=== PATIENT | female | born 1975 | race Caucasian/White ===

== ENCOUNTER 2019-02-20 16:48 | Outpatient (REF) | payer BC, SELFPAY ==
[2019-02-23 13:45] LABS: Chlamydia Result Negative; GC Result Negative
== END 2019-02-20 17:08 ==
LOC: LBN 16:48
PROVIDERS: PCP Physician Assistant Medical; Visit Provider Nurse Practitioner Family
DX: Z11.3 Encounter for screening for infections with a predominantly sexual mode of transmission (principal)
CPT/HCPCS: 87491; 87591

== ENCOUNTER 2019-04-21 01:14 | Outpatient (CLI) | payer BC, SELFPAY ==
--- NOTE | 2019-04-21 08:32 | DI.MAMMO_ITS ---
EXAM: MG MAMMO SCREENING CLINICAL HISTORY: screening, Z12.31 TECHNIQUE: Mammograms were interpreted according to the usual protocol including computer analysis w [employer] CAD system, tomosynthesis and C-view imaging. COMPARISON: [id number] FINDINGS: The breasts are composed of heterogeneously dense tissue, which may obscure small masses, breast dens ity category C. There are no suspicious masses or suspicious microcalcifications. There has been no significant chagne when compared with prior images. IMPRESSION: Category 1, negative mammogram. Routine yearly screening is recommended. BI-RADS Cat 1 - Negative Breast Density - Category C - Heterogeneously dense
== END 2019-04-21 01:34 ==
PROVIDERS: PCP Physician Assistant Medical; Visit Provider Nurse Practitioner Family
DX: Z12.31 Encounter for screening mammogram for malignant neoplasm of breast (principal)
CPT/HCPCS: 77063; 77067

== ENCOUNTER 2019-08-25 12:34 | Outpatient (CLI) | payer OTHER, SELFPAY ==
[2019-08-25 13:11] LABS: Kit/Specimen SENT
== END 2019-08-25 12:54 ==
PROVIDERS: PCP Physician Assistant Medical; Visit Provider Naturopath
DX: R51 Headache (principal); Z00.00 Encounter for general adult medical examination without abnormal findings; R53.82 Chronic fatigue, unspecified; L20.9 Atopic dermatitis, unspecified; L29.9 Pruritus, unspecified
CPT/HCPCS: 36415

== ENCOUNTER 2020-02-26 15:34 | Outpatient (REF) | payer OTHER, SELFPAY ==
[2020-02-26 16:01] LABS: Abs Immature Grans 0.02 10^3/uL (0.0-0.06); Absolute Basophil Count 0.04 10^3/uL (0.0-0.2); Absolute Eosinophil Count 0.56 10^3/uL (0.0-0.7); Absolute Lymphocyte Count 2.09 10^3/uL (1.2-3.4); Absolute Monocyte Count 0.45 10^3/uL (0.1-0.8); Absolute Neutrophil Count 3.77 10^3/uL (1.2-6.7); Basophils % 0.6; Eosinophils % 8.1; HCT 42.7 % (36.0-46.0); HGB 13.7 g/dL (11.2-15.7); Immature Grans % 0.3; Lymphocytes % 30.2; MCH 28.8 pg (27.0-33.0); MCHC 32.1 % (32.0-36.0); MCV 89.7 fL (80-95); MPV 9.3 fL (8.0-11.0); Monocytes % 6.5; Neutrophils % 54.3; Nucleated RBC 0 %; Platelet Count 368 10^3/uL (130-400); RBC 4.76 10^6/uL (3.93-5.22); RDW 13.6 % (11.7-14.6); RDW-SD 44.8 fL; WBC 6.93 10^3/uL (4.4-10.8)
[2020-02-26 16:55] LABS: ALT 28 U/L (14-59); AST 17 U/L (15-37); Albumin 4.2 g/dL (3.4-5.0); Alkaline Phosphatase 76 U/L (46-116); Anion Gap 4.1 mmol/L (3-11); BUN 15 mg/dL (7-18); Bilirubin, Total 0.5 mg/dL (0.2-1.0); CO2 28.9 mmol/L (21.0-32.0); CREATININE 0.98 mg/dL (0.55-1.02); Calcium 8.8 mg/dL (8.5-10.1); Calculated LDL 163 mg/dL (<100); Chloride 103 mmol/L (98-107); Cholesterol 230 mg/dL (<200); Glucose 88 mg/dL (74-106); HDL Cholesterol 51 mg/dL (40-60); Magnesium 1.9 mg/dL (1.8-2.4); Potassium 4.3 mmol/L (3.5-5.1); Sodium 136 mmol/L (136-145); TSH (W/Ref FT4) 4.06 uIU/mL (0.36-3.74); Total Protein 7.5 g/dL (6.4-8.2); Triglyceride 84 mg/dL (<150)
[2020-02-26 16:57] LABS: Troponin I < 0.05 ng/mL (<0.06)
[2020-02-26 17:20] LABS: FREE T4 0.93 ng/dL (0.76-1.46)
== END 2020-02-26 15:54 ==
LOC: NCHCN 15:34
PROVIDERS: PCP Physician Assistant Medical; Visit Provider Nurse Practitioner Family
DX: R07.9 Chest pain, unspecified (principal)
CPT/HCPCS: 80053; 80061; 83735; 84439; 84443; 84484; 85025

== ENCOUNTER 2020-04-20 09:55 | Outpatient (REF) | payer OTHER, SELFPAY ==
[2020-04-20 21:18] LABS: TSH (W/Ref FT4) 3.17 uIU/mL (0.36-3.74)
== END 2020-04-20 10:15 ==
LOC: NCHCN 09:55
PROVIDERS: PCP Physician Assistant Medical; Visit Provider Physician Assistant Medical
DX: Z00.00 Encounter for general adult medical examination without abnormal findings (principal)
CPT/HCPCS: 84443

== ENCOUNTER 2020-07-05 03:20 | Outpatient (CLI) | payer OTHER, SELFPAY ==
[2020-07-05 13:30] LABS: Abs Immature Grans 0.01 10^3/uL (0.0-0.06); Absolute Basophil Count 0.03 10^3/uL (0.0-0.2); Absolute Eosinophil Count 0.45 10^3/uL (0.0-0.7); Absolute Lymphocyte Count 2.08 10^3/uL (1.2-3.4); Absolute Monocyte Count 0.28 10^3/uL (0.1-0.8); Absolute Neutrophil Count 3.32 10^3/uL (1.2-6.7); Basophils % 0.5; Eosinophils % 7.3; HCT 42.6 % (36.0-46.0); HGB 13.9 g/dL (11.2-15.7); Immature Grans % 0.2; Lymphocytes % 33.7; MCHC 32.6 % (32.0-36.0); MCV 88.9 fL (80-95); MPV 9.2 fL (8.0-11.0); Monocytes % 4.5; Neutrophils % 53.8; Nucleated RBC 0 %; Platelet Count 292 10^3/uL (130-400); RBC 4.79 10^6/uL (3.93-5.22); RDW 12.9 % (11.7-14.6); RDW-SD 42.4 fL; WBC 6.17 10^3/uL (4.4-10.8)
[2020-07-05 14:07] LABS: Iron 94 ug/dL (50-170); Total Iron Binding Capacity 300 ug/dL (250-450); Transferrin Sat 31 % (15-50)
[2020-07-05 15:05] LABS: ALT 34 U/L (14-59); AST 18 U/L (15-37); Albumin 4.3 g/dL (3.4-5.0); Alkaline Phosphatase 60 U/L (46-116); Anion Gap 7.3 mmol/L (3-11); BUN 12 mg/dL (7-18); Bilirubin, Total 0.4 mg/dL (0.2-1.0); CO2 28.7 mmol/L (21.0-32.0); CREATININE 0.67 mg/dL (0.55-1.02); Calcium 8.5 mg/dL (8.5-10.1); Chloride 103 mmol/L (98-107); Glucose 90 mg/dL (74-106); Potassium 3.9 mmol/L (3.5-5.1); Sodium 139 mmol/L (136-145); TSH 4.37 uIU/mL (0.36-3.74); Total Protein 7.3 g/dL (6.4-8.2); Vitamin B12 1393 pg/mL (193-986)
[2020-07-05 15:09] LABS: Folate > 20.0 ng/mL (8.6-20.0)
[2020-07-05 15:34] LABS: FREE T4 0.97 ng/dL (0.76-1.46)
[2020-07-05 21:48] LABS: T3,Free 3.4 pg/mL (2.8-5.3)
[2020-07-05 22:03] LABS: T3, Total 151 ng/dL (97-169)
[2020-07-07 12:05] LABS: Free Retinol (Vitamin A) 58.4 mcg/dL (32.5-78.0)
[2020-07-12 15:10] LABS: 25-Hydroxy D Total 81 ng/mL; 25-Hydroxy D2 <4.0 ng/mL; 25-Hydroxy D3 81 ng/mL
== END 2020-07-05 03:40 ==
PROVIDERS: PCP Physician Assistant Medical; Visit Provider Naturopath
DX: E55.9 Vitamin D deficiency, unspecified (principal); R53.83 Other fatigue; E61.1 Iron deficiency; R20.2 Paresthesia of skin
CPT/HCPCS: 36415; 80053; 82306; 82607; 82746; 83540; 83550; 84439; 84443; 84480; 84481; 84590; 85025

== ENCOUNTER 2020-09-21 01:49 | Outpatient (CLI) | payer OTHER, SELFPAY ==
--- NOTE | 2020-09-21 12:57 | DI.US_ITS ---
APPROVED REPORT EXAM: Comprehensive 2D, Doppler, and color-flow Echocardiogram Patient Location: Out-Patient [facility] Supervisor: Annabella Hilliard RDCS (AE) Indications: Chest pain Other Information Study Quality: Adequate Conclusion Left Ventricle : The left ventricle is normal size. The left ventricular systolic function is normal. The left ventricular ejection fraction is within the normal range. There is normal left ventricular wall thickness. There is normal LV segmental wall motion. LVEF is 60%. Right Ventricle : The right ventricle is normal size. The right ventricular systolic function is norm al. The RVSP is 20.4mmHg. Atria : The left atrium size is normal. The right atrium size is normal. Mitral Valve : The mitral valve is normal in structure. Mild mitral regurgitation. No evidence of sam ral valve stenosis. Great Vessels : The aortic root is normal in size. The ascending aorta is normal in size. Aortic ar ch is not well visualized. IVC is normal in size and collapses >50% with inspiration. Please see remainder of study for further details. Wall motion Left Ventricle The left ventricle is normal size. The left ventricular systolic function is normal. The left ventric ular ejection fraction is within the normal range. There is normal left ventricular wall thickness. T here is normal LV segmental wall motion. There is no ventricular septal defect visualized. LVEF is 60 %. Right Ventricle The right ventricle is normal size. The right ventricular systolic function is normal. The RVSP is 20 .4mmHg. Atria The left atrium size is normal. The right atrium size is normal. The interatrial septum is intact wit h no evidence for an atrial septal defect. Aortic Valve The aortic valve is normal in structure. Aortic valve is trileaflet. There is no aortic valvular sten osis. No aortic regurgitation is present. Mitral Valve The mitral valve is normal in structure. No evidence of mitral valve stenosis. Mild mitral regurgitat ion. Tricuspid Valve The tricuspid valve is normal in structure. There is no tricuspid valve stenosis. Trace tricuspid reg urgitation. Pulmonic Valve The pulmonary valve is normal in structure. There is no pulmonic valvular stenosis. There is no pulmo edilia valvular regurgitation. Great Vessels The aortic root is normal in size. The ascending aorta is normal in size. Aortic arch is not well vi sualized. IVC is normal in size and collapses >50% with inspiration. Pericardium There is no pericardial effusion. 2D Dimensions IVSD d PLAX 0.77 cm F: 0.6-1.0 LV Vol A2C d MOD 106.2 mL LVPW d PLAX 0.78 cm F: 0.6 - 1.0 LV Vol A4C d MOD 114.3 mL LVID d PLAX 5.03 cm F: 3.8 - 5.2 LA vol/ BSA A2C s A-L 27.2 mL/m2 LVDs 3.25 cm F: 2.2 - 3.5 LA vol/ BSA A4C s A-L 25.4 mL/m2 Ao Root d 2.59 cm F: 2.7 - 3.3 LA Vol/ BSA Biplane s A-L 27.0 mL/m2 RA Area A4C 12.78 cm2 LA Area A4C s MOD 15.85 cm2 RA Vol/ BSA A4C s A-L 19.3 mL/m2 LA Area A2C s MOD 16.00 cm2 Ao Asc Diam d 3.16 cm F: 2.3 - 3.1 LV EF A4C MOD 61.8 % LV EF Teichholz 63.6 % LV EF A2C MOD 60.4 % LVEF (Davila's) 61.16 % F: 54 - 74 LV EF Biplane MOD 61.2 % LV Volume 89.08 mL F: 46 - 106 SV 68.03 mL LV Volume Index 53.66 mL/m2 F: 29 - 61 SV Index 40.94 mL/m2 LV Vol Biplane MOD 111.2 mL FS 34.65 % M-Mode TAPSE 2.58 cm (M/F) >1.7 LV Diastology E/A Ratio 1.3 MV E Vmax 0.82 (0.4-1.3 m/s) MV A Vmax 0.65 (0.4-1.3 m/s) MV E/A Ratio 1.24 Aortic Valve LVOT Area 3.44 cm2 AoV Area Vmax 2.96 cm2 LVOT Vmax 1.23 m/s AoV Area/ BSA (Vmax) 1.78 cm2/m2 LVOT Mean Diaz. 0.88 m/s LAMONT Mean Diaz. 3.19 cm2 LVOT Peak Grad 6.0 mmHg LAMONT Mean Diaz. Index 1.92 cm2/m2 LVOT Mean Grad 3.4 mmHg LVOT VTI 0.266 m LVOT Diam s 2.05 cm AoV Vmax 1.43 m/s Velocity Ratio 0.86 AoV Mean Diaz. 0.95 m/s AoV Peak Grad 8.1 mmHg LVOT SV 91.62 mL AoV Mean Grad 4.2 mmHg AoV VTI 0.334 m AoV Area VTI 2.74 cm2 AoV Area/ BSA (VTI) 1.65 cm/m2 Mitral Valve MV DT 269 (160-240 msec) MV PHT 78 msec MV Area PHT 2.82 cm2 Pulmonary Valve PV Vmax 0.99 (0.5-1.5 m/s) RVOT Peak Gr. 2.14 mmHg PV Peak Grad 3.9 mmHg RVOT Mean Gr. 1.00 mmHg PV Mean Grad 1.8 mmHg RVOT VTI 0.188 m PV VTI 0.236 m RVOT Vmax 0.73 m/s Tricuspid Valve TR Peak Grad 17.3 mmHg TR Vmax 2.08 m/s RA Pressure 3.00 mmHg RVSP (TR) 20.4 mmHg
== END 2020-09-21 02:09 ==
PROVIDERS: PCP Physician Assistant Medical; Visit Provider Naturopath
DX: R07.9 Chest pain, unspecified (principal); I34.0 Nonrheumatic mitral (valve) insufficiency
CPT/HCPCS: 93306

== ENCOUNTER 2021-01-19 11:48 | Outpatient (REF) | payer OTHER, SELFPAY ==
--- NOTE | 2021-01-19 10:30 | PAPFT_PTH ---
PATIENT: Lindsey Carrasquillo LOC: [facility] U#:[id number] AGE/SX: 45/F ROOM: RE01/19/[address]: HAZEL Gamble : 1975 BED: DIS: 01/19/2021 SPEC #: [id number] RECD: 01/19/21 12:55 STATUS: SANTIAGO REQ #: [id number] GARY: 01/19/21 10:[address]: Feli Ye DEPT: [facility] Cytology RECD BY: Tiana Pappas ENTERED: 01/19/21 12:55 SP TYPE: PAPFT OTHR DR: Catrina Huber Tissues: 1 - CX/ENDOCX FOR PAP SMEARS Procedures: PAP THIN PREP/UVM Screening HPV DNA PROBE Comments: [id number]
== END 2021-01-19 11:49 | disposition home or self-care (01) ==
LOC: LBN 11:48
PROVIDERS: PCP Physician Assistant Medical; Visit Provider Nurse Practitioner Family
DX: Z12.4 Encounter for screening for malignant neoplasm of cervix (principal); Z11.51 Encounter for screening for human papillomavirus (HPV); Z01.419 Encounter for gynecological examination (general) (routine) without abnormal findings
CPT/HCPCS: 88142; 87624

== ENCOUNTER 2021-03-15 01:46 | Outpatient (CLI) | payer OTHER, SELFPAY ==
--- NOTE | 2021-03-15 07:00 | DI.MAMMO_ITS ---
Exam(s) MAMMO SCREENING EXAM: MAMMO SCREENING CLINICAL HISTORY: screening, Z12.39 TECHNIQUE: Bilateral full field digital CC and MLO mammographic images were obtained with 3D tomosyn thesis and utilizing computer aided detection (CAD). COMPARISON: Available for comparison. FINDINGS: Masses/Architectural Distortion: None seen. Microcalcifications: No suspicious pleomorphic-type are seen. Skin Thickening/Nipple Retraction: None. IMPRESSION: 1. No significant interval change with no specific features of malignancy noted. 2. Unless there is more urgent need, screening mammography is recommended, as per [employer] guidelines. BI-RADS Category 1 - Negative Breast Density - Category C - Heterogeneously dense Breast density category C or D implies that the patient has dense breast tissue. Dense breast tissue is very common and is not abnormal but dense breast tissue can make it harder to find cancer on a ma mmogram. Also, dense breast tissue may increase their breast cancer risk. This information about the result of the mammogram report was provided to the patient to raise their awareness. Use this report when you speak with the patient about their risks for breast cancer, which includes their family hist ory. At that time, you may recommend for more screening tests (Ultrasound or MRI) as they might be us eful based on their risk. A negative radiographic report should not delay biopsy if a dominant or clinically suspicious mass is present. Up to ten percent of cancers are not identified on mammography. A negative report may reinforce clinical impression. Adenosis and dense breasts may obscure an underlying neoplasm. False positive reports average 6 to 10%. Patient will receive a letter notifying them of these results.
== END 2021-03-15 02:06 ==
PROVIDERS: PCP Physician Assistant Medical; Visit Provider Nurse Practitioner Family
DX: Z12.31 Encounter for screening mammogram for malignant neoplasm of breast (principal)
CPT/HCPCS: 77063; 77067

== ENCOUNTER 2021-05-19 03:46 | Outpatient (CLI) | payer OTHER, SELFPAY ==
[2021-05-19 18:14] LABS: FSH 93.7 mIU/mL (See Note); Prolactin 8.1 ng/mL (See Table)
== END 2021-05-19 03:47 | disposition home or self-care (01) ==
LOC: LBO 03:47
PROVIDERS: PCP Physician Assistant Medical; Visit Provider Obstetrics & Gynecology
DX: N95.1 Menopausal and female climacteric states (principal)
CPT/HCPCS: 36415; 83001; 84146

== ENCOUNTER → 2021-05-29 00:46 | Outpatient (CLI) | payer OTHER, SELFPAY ==
--- NOTE | 2021-05-29 09:51 | DI.RAD_ITS ---
Exam(s) XR LUMBAR SPINE COMPLETE EXAM: XR LUMBAR SPINE COMPLETE CLINICAL HISTORY: LOW BACK PAIN, M54.5. TECHNIQUE: 2D digital imaging was performed. COMPARISON: CR THORACIC SPINE from 01/13/2016 FINDINGS: There is no evidence of fracture, listhesis, nor pars interarticularis defects. There is moderate di sc space narrowing at L5-S1 level. Other disc spaces exhibit normal height. No scoliosis. No osseo us lesions. Sacroiliac joints unremarkable. IMPRESSION: Moderate disc space narrowing L5-S1 level DATA REPOSITORY: RADIATION DOSE DELIVERED:
== END ==
PROVIDERS: PCP Physician Assistant Medical; Visit Provider Physician Assistant Medical
DX: M54.59 Other low back pain (principal); M48.07 Spinal stenosis, lumbosacral region
CPT/HCPCS: 72110

== ENCOUNTER 2022-06-18 14:43 | Outpatient (REF) | payer OTHER, SELFPAY ==
[2022-06-18 16:37] LABS: Abs Immature Grans 0.03 10^3/uL (0.0-0.06); Absolute Basophil Count 0.05 10^3/uL (0.0-0.2); Absolute Eosinophil Count 0.48 10^3/uL (0.0-0.7); Absolute Lymphocyte Count 2.92 10^3/uL (1.2-3.4); Absolute Monocyte Count 0.47 10^3/uL (0.1-0.8); Absolute Neutrophil Count 4.49 10^3/uL (1.2-6.7); Basophils % 0.6; Eosinophils % 5.7; HCT 42.1 % (36.0-46.0); Immature Grans % 0.4; Lymphocytes % 34.6; MCH 29.2 pg (27.0-33.0); MCHC 33.3 % (32.0-36.0); MCV 88 fL (80-95); MPV 9.9 fL (8.0-11.0); Monocytes % 5.6; Neutrophils % 53.1; Platelet Count 372 10^3/uL (130-400); RDW 13.3 % (11.7-14.6); RDW-SD 43.2 fL; WBC 8.44 10^3/uL (4.4-10.8)
[2022-06-18 17:00] LABS: ALT 34 U/L (14-59); AST 24 U/L (15-37); Albumin 4.4 g/dL (3.4-5.0); Alkaline Phosphatase 71 U/L (46-116); Anion Gap 7.9 mmol/L (3-11); BUN 13 mg/dL (7-18); Bilirubin, Total 0.3 mg/dL (0.2-1.0); CO2 30.1 mmol/L (21.0-32.0); CREATININE 0.6 mg/dL (0.55-1.02); Calcium 8.9 mg/dL (8.5-10.1); Chloride 102 mmol/L (98-107); Estimated GFR 110.65 (mL/min/1.73m2); Glucose 92 mg/dL (74-106); Potassium 4.1 mmol/L (3.5-5.1); Sodium 140 mmol/L (136-145); TSH (W/Ref FT4) 1.52 uIU/mL (0.36-3.74); Total Protein 7.7 g/dL (6.4-8.2)
== END 2022-06-18 14:44 | disposition home or self-care (01) ==
LOC: NCHCN 14:43
PROVIDERS: PCP Physician Assistant Medical; Visit Provider Physician Assistant Medical
DX: R05.8 Other specified cough (principal); R94.6 Abnormal results of thyroid function studies
CPT/HCPCS: 80053; 84443; 85025

== ENCOUNTER → 2022-06-18 16:13 | Outpatient (CLI) | payer OTHER, SELFPAY ==
--- NOTE | 2022-06-18 | DI.RAD_ITS ---
Exam(s) XR CHEST 2V PA LATERAL EXAM: XR CHEST 2V PA LATERAL CLINICAL HISTORY: COUGH, R05.8, COVID NEGATIVE 06/18/22 TECHNIQUE: 2D digital imaging was performed. COMPARISON: CR THORACIC SPINE from 01/13/2016 FINDINGS: HEART: Normal size. Aorta: Not dilated. PULMONARY VASCULATURE: Normal. LUNGS: Clear. PLEURAL SPACE: No pleural effusion or pneumothorax. BONE:Unremarkable for age. IMPRESSION: No acute abnormality. DATA REPOSITORY: RADIATION DOSE DELIVERED:
== END ==
PROVIDERS: PCP Physician Assistant Medical; Visit Provider Physician Assistant Medical
DX: R05.8 Other specified cough (principal)
CPT/HCPCS: 71046

== ENCOUNTER 2022-07-25 15:34 | Outpatient (REF) | payer OTHER, SELFPAY ==
[2022-07-25 20:55] LABS: INR 0.9 (0.9-1.1); Prothrombin Time 9.3 sec (9.3-11.0)
[2022-07-25 23:48] LABS: Vitamin B12 1622 pg/mL (193-986)
== END 2022-07-25 15:35 | disposition home or self-care (01) ==
LOC: NCHCN 15:34
PROVIDERS: PCP Physician Assistant Medical; Visit Provider Physician Assistant Medical
DX: K06.8 Other specified disorders of gingiva and edentulous alveolar ridge (principal); K13.79 Other lesions of oral mucosa; E53.8 Deficiency of other specified B group vitamins; E56.9 Vitamin deficiency, unspecified
CPT/HCPCS: 82607; 85610; 85730

== ENCOUNTER 2022-07-30 15:11 | Outpatient (CLI) | payer OTHER, SELFPAY ==
[2022-07-30 15:45] LABS: PTT Activated 24.7 sec (21.0-27.5)
== END 2022-07-30 15:12 | disposition home or self-care (01) ==
LOC: LBO 15:12
PROVIDERS: PCP Physician Assistant Medical; Visit Provider Physician Assistant Medical
DX: K06.8 Other specified disorders of gingiva and edentulous alveolar ridge (principal); K13.79 Other lesions of oral mucosa
CPT/HCPCS: 36415; 85730

== ENCOUNTER 2022-08-31 14:35 | Outpatient (REF) | payer OTHER, SELFPAY ==
[2022-08-31 15:55] LABS: Vitamin B12 1043 pg/mL (193-986)
== END 2022-08-31 14:36 | disposition home or self-care (01) ==
LOC: NCHCN 14:35
PROVIDERS: PCP Physician Assistant Medical; Visit Provider Physician Assistant Medical
DX: K06.8 Other specified disorders of gingiva and edentulous alveolar ridge (principal); E53.8 Deficiency of other specified B group vitamins
CPT/HCPCS: 82607

== ENCOUNTER 2022-12-25 14:41 | Outpatient (REF) | payer OTHER, SELFPAY ==
--- NOTE | 2022-12-25 09:50 | SKI_PTH ---
PATIENT: Lindsey Carrasquillo LOC: [facility] U#:[id number] AGE/SX: 47/F ROOM: RE12/25/[address]: Alin Deleon MD : 1975 BED: DIS: 12/25/2022 SPEC #: [id number] RECD: 12/25/22 18:16 STATUS: SANTIAGO HERRERA #: [id number] GARY: 12/25/22 09:[address]: Alin Deleon DEPT: Surgical Specimen RECD BY: Tiana Pappas ENTERED: 12/25/22 18:18 SP TYPE: TITUS RAMOS DR: Catrina Huber Tissues: 1 - SKIN BIOPSY(SHAVE/PUNCH) Procedures: SKIN LEVEL 4 Comments: [id number]
== END 2022-12-25 14:42 | disposition home or self-care (01) ==
LOC: LBN 14:41
PROVIDERS: PCP Physician Assistant Medical; Visit Provider Otolaryngology
DX: L08.89 Other specified local infections of the skin and subcutaneous tissue (principal)
CPT/HCPCS: 88305

== ENCOUNTER 2023-03-18 18:25 | Outpatient (REF) | payer OTHER, SELFPAY ==
[2023-03-18 19:46] LABS: Abs Immature Grans 0.02 10^3/uL (0.0-0.06); Absolute Basophil Count 0.03 10^3/uL (0.0-0.2); Absolute Eosinophil Count 0.32 10^3/uL (0.0-0.7); Absolute Lymphocyte Count 1.77 10^3/uL (1.2-3.4); Absolute Monocyte Count 0.51 10^3/uL (0.1-0.8); Absolute Neutrophil Count 4.43 10^3/uL (1.2-6.7); Basophils % 0.4; Eosinophils % 4.5; HCT 40.9 % (36.0-46.0); HGB 13.4 g/dL (11.2-15.7); Immature Grans % 0.3; MCH 28.3 pg (27.0-33.0); MCHC 32.8 % (32.0-36.0); MCV 86 fL (80-95); Monocytes % 7.2; Neutrophils % 62.6; Platelet Count 341 10^3/uL (130-400); RBC 4.74 10^6/uL (3.93-5.22); RDW 13.8 % (11.7-14.6); RDW-SD 44.6 fL; WBC 7.08 10^3/uL (4.4-10.8)
[2023-03-18 20:00] LABS: ALT 117 U/L (14-59); AST 51 U/L (15-37); Albumin 4.3 g/dL (3.4-5.0); Alkaline Phosphatase 78 U/L (46-116); Anion Gap 8.8 mmol/L (3-11); BUN 16 mg/dL (7-18); Bilirubin, Total 0.2 mg/dL (0.2-1.0); C-Reactive Protein 0.55 mg/dL (0.0-0.3); CO2 27.2 mmol/L (21.0-32.0); CREATININE 0.7 mg/dL (0.55-1.02); Calcium 9.4 mg/dL (8.5-10.1); Chloride 101 mmol/L (98-107); Estimated GFR 105.95 (mL/min/1.73m2); Glucose 109 mg/dL (74-106); Sodium 137 mmol/L (136-145); Total Protein 7.8 g/dL (6.4-8.2)
[2023-03-19 18:33] LABS: Parathyroid Hormone,Intact 43 pg/mL (19-88)
[2023-03-21 10:07] LABS: Interleukin 6, S <2.0 pg/mL (<6.4)
== END 2023-03-18 18:26 | disposition home or self-care (01) ==
LOC: NCHCN 18:25
PROVIDERS: PCP Physician Assistant Medical; Visit Provider Physician Assistant Medical
DX: K06.8 Other specified disorders of gingiva and edentulous alveolar ridge (principal)
CPT/HCPCS: 80053; 83529; 83970; 85025; 86140

== ENCOUNTER 2024-06-26 17:12 | Outpatient (REF) | payer OTHER, SELFPAY | END 2024-06-26 17:13 | disposition home or self-care (01) | LOC: LBN 17:12 | PROVIDERS: PCP Physician Assistant Medical; Visit Provider Obstetrics & Gynecology | DX: N94.9 Unspecified condition associated with female genital organs and menstrual cycle (principal) | CPT/HCPCS: 87480; 87510; 87660 ==